=== PATIENT | male | born 1995 | race Caucasian/White ===

== ENCOUNTER 2017-06-07 22:26 | Emergency (ER) | payer MEDICAID ==
--- NOTE | 2017-06-08 00:10 | EDPHYS ---
Physician Documentation [facility] Name: Jovani Isaac Age: 21 yrs Sex: Male : 1995 Arrival Date: 06/07/2017 Time: 22:30 Bed 26 Private MD: ED Physician Vini Akers HPI: 06/07 23:57 This 21 yrs old Male presents to ER via Ambulatory with complaints of Sore cp Throat. 23:57 The patient presents with sore throat. The patient describes throat pain as constant. cp Onset: The symptoms/episode began/occurred this morning. Severity of symptoms: in the emergency department the symptoms are unchanged, despite home interventions. Associated signs and symptoms: Pertinent negatives cough, fever, flu-like symptoms, headache. Historical: - Allergies: 23:09 No Known Allergies; lp1 - Home Meds: 23:09 None [Active]; lp1 - PMHx: 23:09 Asthma; Depression; lp1 - PSHx: 23:09 None; lp1 - Immunization history:: Adult Immunizations up to date. - Social history:: Smoking status: Patient/guardian denies using tobacco. ROS: 23:57 Eyes: Negative for injury, pain, redness, and discharge. cp 23:57 Constitutional: Negative for body aches, chills, fever, poor PO intake. 23:57 ENT: Positive for difficulty swallowing, sore throat, Negative for drainage from ear(s), ear pain, difficulty handling secretions. 23:57 Neck: Negative for pain with movement, pain at rest, stiffness. 23:57 Respiratory: Negative for cough, wheezing. 23:57 Abdomen/GI: Negative for abdominal pain, nausea, vomiting, and diarrhea. 23:57 Skin: Negative for cellulitis, rash. 23:57 All other systems are negative. Exam: 23:57 Head/Face: Normocephalic, atraumatic. cp 23:57 Constitutional: The patient appears in no acute distress, alert, awake, non-toxic, well developed, well nourished. 23:57 Eyes: Periorbital structures: appear normal, Conjunctiva: normal, no exudate, no injection, Lids and lashes: appear normal, bilaterally. 23:57 ENT: External ear(s): are unremarkable, Ear canal(s): are normal, clear, TM's: bulging, is not appreciated, bilaterally, erythema, is not appreciated, bilaterally, Nose: is normal, Mouth: Lips: moist, Oral mucosa: moist, Posterior pharynx: Airway: no evidence of obstruction, patent, Tonsils: bilaterally enlarged, mild erythema, Uvula: edematous, erythema, erythema, that is moderate, exudate, noted on uvula. 23:57 Neck: ROM/movement: is normal, is supple, without pain, no range of motions limitations, no meningismus, no nuchal rigidity. 23:57 Chest/axilla: Inspection: normal, Palpation: is normal, no crepitus, no tenderness. 23:57 Cardiovascular: Rate: normal, Rhythm: regular. 23:57 Respiratory: the patient does not display signs of respiratory distress, Respirations: normal, no use of accessory muscles, no retractions, no splinting, no tachypnea, Breath sounds: are clear throughout, no decreased breath sounds, no stridor, no wheezing. 23:57 Abdomen/GI: Exam negative for discomfort, distension, guarding, Inspection: abdomen appears normal. 23:57 Skin: cellulitis, is not appreciated, no rash present. Vital Signs: 23:09 BP 139 / 85 RA Sitting; Pulse 88; Resp 16; Temp 98.2(TE); Pulse Ox 96% on R/A; Weight lp1 90.72 kg; Height 5 ft. 6 in. (167.64 cm); Pain 7/10; 23:09 Body Mass Index 32.28 (90.72 kg, 167.64 cm) lp1 MDM: 23:14 Patient medically screened. cp 06/08 00:03 Differential diagnosis: apthous stomatitis, epiglottitis, luca-smith virus, group A cp strep tonsillitis, ranjit's angina, mononucleosis, peritonsillar abscess pharyngitis. Data reviewed: vital signs, nurses notes, and as a result, I will discharge patient. Administered Medications: 00:15 Drug: Augmentin Chewable Tablet 800 mg Route: PO; lk1 00:18 Follow up: Response: Medication administered at discharge. lk1 00:16 Drug: Decadron 10 mg Route: IM; Site: Other; lk1 00:18 Follow up: Response: Medication administered at discharge. lk1 00:18 CANCELLED (Duplicate Order): Decadron 10 mg PO once lk1 Disposition: 06/08/17 00:08 Discharged to Home. Impression: Uvulitis, Acute tonsillitis. - Condition is Stable. - Discharge Instructions: Tonsillitis, Uvulitis. - Prescriptions for Augmentin 875- 125 mg Oral Tablet - take 1 tablet by ORAL route every 12 hours for 10 days; 20 tablet. Prednisone 20 mg Oral Tablet - take 2 tablet by ORAL route once daily for 5 days; 10 tablet. - Medication Reconciliation Form, Thank You Letter, Antibiotic Education, Prescription Opioid Use form. - Follow up: Private Physician; When: 1 - 2 days; Reason: Recheck today's complaints. - Problem is new. - Symptoms are unchanged. Addendum: 06/11/2017 07:07 Co-signature as Attending Physician, Vini Akers MD I agree with the assessment and w a plan of care. Signatures: Alice Sigala, RN RN lp1 Dexter Sharpe PA PA cp Kluge, Leah, RN RN lk1 Vini Akers MD MD va Corrections: (The following items were deleted from the chart) 06/08 00:18 00:09 Decadron 10 mg PO once ordered. cp lk1
--- NOTE | 2017-06-08 00:10 | ER ---
Nurse's Notes [facility] Name: Jovani Isaac Age: 21 yrs Sex: Male : 1995 Arrival Date: 06/07/2017 Time: 22:30 Bed 26 Private MD: Diagnosis: Acute tonsillitis;Uvulitis Presentation: 06/07 23:07 Presenting complaint: Patient states: Attempted to go to sleep tonight and couldn't lp1 with pain to throat, pain when swallowing; Sore throat began yesterday. Transition of care: patient was not received from another setting of care. Onset of symptoms was June 06, 2017. Care prior to arrival: None. 23:07 Method Of Arrival: Ambulatory lp1 23:07 Acuity: DEYSI 4 lp1 Historical: - Allergies: 23:09 No Known Allergies; lp1 - Home Meds: 23:09 None [Active]; lp1 - PMHx: 23:09 Asthma; Depression; lp1 - PSHx: 23:09 None; lp1 - Immunization history:: Adult Immunizations up to date. - Social history:: Smoking status: Patient/guardian denies using tobacco. Screenin:11 Abuse screen: Denies threats or abuse. Denies injuries from another. Nutritional lp1 screening: No deficits noted. Tuberculosis screening: No symptoms or risk factors identified. Fall Risk None identified. Assessment: 23:33 General: Appears ill, Behavior is calm, cooperative, appropriate for age. Pain: lk1 Complains of pain in throat Pain currently is 7 out of 10 on a pain scale. Neuro: Level of Consciousness is awake, alert, obeys commands, Oriented to person, place, time, situation. Cardiovascular: Heart tones S1 S2 present Capillary refill is brisk Patient's skin is warm and dry. Respiratory: Airway is patent Respiratory effort is even, unlabored, Breath sounds are clear bilaterally. GI: No signs and/or symptoms were reported involving the gastrointestinal system. : No signs and/or symptoms were reported regarding the genitourinary system. EENT: Throat is reddened has enlarged tonsils. EENT: Reports pain when swallowing. Derm: No signs and/or symptoms reported regarding the dermatologic system. Musculoskeletal: No signs and/or symptoms reported regarding the musculoskeletal system. Vital Signs: 23:09 BP 139 / 85 RA Sitting; Pulse 88; Resp 16; Temp 98.2(TE); Pulse Ox 96% on R/A; Weight lp1 90.72 kg; Height 5 ft. 6 in. (167.64 cm); Pain 7/10; 23:09 Body Mass Index 32.28 (90.72 kg, 167.64 cm) lp1 ED Course: 22:30 Patient arrived in ED. es 23:09 Triage completed. lp1 23:09 Arm band placed on left wrist. lp1 23:14 Dexter Sharpe PA is PHCP. cp 23:14 Vini Akers MD is Attending Physician. 23:30 Patient has correct armband on for positive identification. Bed in low position. Call lk1 light in reach. 06/08 00:06 Taty Borden, EROS is Primary Nurse. lk1 00:20 No provider procedures requiring assistance completed. Patient did not have IV access lk1 during this emergency room visit. Administered Medications: 00:15 Drug: Augmentin Chewable Tablet 800 mg Route: PO; lk1 00:18 Follow up: Response: Medication administered at discharge. lk1 00:16 Drug: Decadron 10 mg Route: IM; Site: Other; lk1 00:18 Follow up: Response: Medication administered at discharge. lk1 00:18 CANCELLED (Duplicate Order): Decadron 10 mg PO once lk1 Outcome: 00:08 Discharge ordered by . cp 00:20 Discharged to home ambulatory. lk1 00:20 Condition: good 00:20 Discharge instructions given to patient, Instructed on discharge instructions, follow up and referral plans. medication usage, safety practices, Demonstrated understanding of instructions, follow-up care, medications, Prescriptions given X 2. 00:23 Patient left the ED. lk1 Signatures: Chanelle Rojo Laura, RN RN lp1 Dexter Sharpe PA PA cp Taty Borden, EROS RN lk1
[2017-06-08] MEDS ORDERED: AMOX/K CLAV 875 MG TAB ONE (00:27)
[2017-06-08] MEDS ORDERED: DEXAMETHASONE 10 MG/ML VIAL ONE (00:30)
== END 2017-06-08 00:23 | disposition home or self-care (01) ==
LOC: ER 22:26
DX: K12.2 Cellulitis and abscess of mouth (principal); J03.90 Acute tonsillitis, unspecified
CPT/HCPCS: 96372; 99283; J1100

== ENCOUNTER 2017-11-05 14:04 | Emergency (ER) | payer MEDICAID ==
[2017-11-05] MEDS ORDERED: IBUPROFEN 200 MG TAB PO ONE (14:35)
[2017-11-05] MEDS ORDERED: IBUPROFEN 400 MG TAB ONE (14:35)
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
== END 2017-11-05 15:58 | disposition home or self-care (01) ==
LOC: ER 14:04
DX: S50.11XA Contusion of right forearm, initial encounter (principal); S80.01XA Contusion of right knee, initial encounter; V18.0XXA Pedal cycle driver injured in noncollision transport accident in nontraffic accident, initial encounter
CPT/HCPCS: 99284

== ENCOUNTER 2018-07-30 16:38 | Emergency (ER) | payer MEDICAID ==
[2018-07-30] MEDS ORDERED: ONDANSETRON 4 MG/2 ML VIAL ONE (17:30)
[2018-07-30] MEDS ORDERED: NA CHLORIDE 0.9% 1,000 ML ONE (17:30)
--- NOTE | 2018-07-30 17:38 | EDPHYS ---
Physician Documentation [facility] Name: Jovani Isaac Age: 22 yrs Sex: Male : 1995 Arrival Date: 07/30/2018 Time: 16:44 Bed 25 Private MD: ED Physician Moe Catherine HPI: 07/30 17:02 This 22 yrs old Male presents to ER via Unassigned with complaints of Cough, kb Sore Throat, Nausea. 17:02 The patient presents with sore throat. The patient describes throat pain as constant. kb Onset: The symptoms/episode began/occurred yesterday. Severity of symptoms: At their worst the symptoms were moderate, in the emergency department the symptoms are unchanged. Modifying factors: The symptoms are alleviated by nothing, the symptoms are aggravated by swallowing, Patient's oral intake status: good Denies contact with similarly ill indivduals. Associated signs and symptoms: Pertinent positives: cough, nausea, Sore throat Pertinent negatives chest pain, chills, diarrhea, dysphagia, earache, fever, flu-like symptoms, headache, rhinorrhea, shortness of breath, vomiting. The patient has not experienced similar symptoms in the past. The patient has not recently seen a physician. Historical: - Allergies: 17:43 No Known Allergies; iw - Home Meds: 17:43 None [Active]; iw - PMHx: 17:43 Asthma; Depression; iw - PSHx: 17:43 wisdom teeth; iw - Immunization history:: Adult Immunizations up to date. - Social history:: Smoking status: Patient uses tobacco products. - Ebola Screening: : Patient negative for fever greater than or equal to 101.5 degrees Fahrenheit, and additional compatible Ebola Virus Disease symptoms Patient denies exposure to infectious person Patient denies travel to an Ebola-affected area in the 21 days before illness onset No symptoms or risks identified at this time. ROS: 17:01 Constitutional: Negative for fever, chills, and weight loss, Neck: Negative for injury, kb pain, and swelling, Cardiovascular: Negative for chest pain, palpitations, and edema, Back: Negative for injury and pain, MS/Extremity: Negative for injury and deformity, Skin: Negative for injury, rash, and discoloration, Neuro: Negative for headache, weakness, numbness, tingling, and seizure. 17:01 ENT: Positive for sore throat. 17:01 Respiratory: Positive for cough, Negative for dyspnea on exertion, hemoptysis, orthopnea, pleurisy, shortness of breath, sputum production, wheezing. 17:01 Abdomen/GI: Positive for nausea, Negative for abdominal pain, vomiting, diarrhea, constipation, abdominal cramps, abdominal distension. Exam: 17:01 Constitutional: This is a well developed, well nourished patient who is awake, alert, kb and in no acute distress. Head/Face: Normocephalic, atraumatic. ENT: Nares patent. No nasal discharge, no septal abnormalities noted. Tympanic membranes are normal and external auditory canals are clear. Oropharynx with no redness, swelling, or masses, exudates, or evidence of obstruction, uvula midline. Mucous membranes moist. Neck: Trachea midline, no thyromegaly or masses palpated, and no cervical lymphadenopathy. Supple, full range of motion without nuchal rigidity, or vertebral point tenderness. No Meningismus. Chest/axilla: Normal chest wall appearance and motion. Nontender with no deformity. No lesions are appreciated. Cardiovascular: Regular rate and rhythm with a normal S1 and S2. No gallops, murmurs, or rubs. Normal PMI, no JVD. No pulse deficits. Respiratory: Lungs have equal breath sounds bilaterally, clear to auscultation and percussion. No rales, rhonchi or wheezes noted. No increased work of breathing, no retractions or nasal flaring. Abdomen/GI: Soft, non-tender, with normal bowel sounds. No distension or tympany. No guarding or rebound. No evidence of tenderness throughout. Skin: Warm, dry with normal turgor. Normal color with no rashes, no lesions, and no evidence of cellulitis. MS/ Extremity: Pulses equal, no cyanosis. Neurovascular intact. Full, normal range of motion. Neuro: Awake and alert, GCS 15, oriented to person, place, time, and situation. Cranial nerves II-XII grossly intact. Motor strength 5/5 in all extremities. Sensory grossly intact. Cerebellar exam normal. Normal gait. Vital Signs: 17:10 BP 139 / 91; Pulse 79; Resp 16; Temp 98.5(O); Pulse Ox 98% on R/A; Weight 81.65 kg; iw Height 5 ft. 6 in. (167.64 cm); Pain 7/10; 17:10 Body Mass Index 29.05 (81.65 kg, 167.64 cm) iw MDM: 16:50 Patient medically screened. kb 17:01 Data reviewed: vital signs, nurses notes. Data interpreted: Pulse oximetry: on room air kb is 100 %. Interpretation: normal. 17:37 Counseling: I had a detailed discussion with the patient and/or guardian regarding: the kb historical points, exam findings, and any diagnostic results supporting the discharge/admit diagnosis, lab results, the need for outpatient follow up, a family practitioner, to return to the emergency department if symptoms worsen or persist or if there are any questions or concerns that arise at home. 07/30 16:52 Order name: Flu; Complete Time: 17:37 kb 07/30 16:52 Order name: Strep; Complete Time: 17:37 kb 07/30 17:11 Order name: Urine Dipstick--Ancillary (enter results) bd 07/30 17:35 Order name: Throat Culture EDMS Administered Medications: 17:51 Drug: Zofran 4 mg Route: PO; ls4 Disposition: 18:47 Co-signature as Attending Physician, Moe Catherine MD. rn Disposition: 07/30/18 17:38 Discharged to Home. Impression: Acute pharyngitis. - Condition is Stable. - Discharge Instructions: Pharyngitis, [id number], Viral Respiratory Infection, [id number], Sore Throat, [id number]-[id number]. - Medication Reconciliation Form, Thank You Letter, Antibiotic Education, Prescription Opioid Use form. - Follow up: Emergency Department; When: As needed; Reason: Worsening of condition. Follow up: Private Physician; When: 2 - 3 days; Reason: Recheck today's complaints, Continuance of care, Re-evaluation by your physician. Signatures: Dispatcher [employer] EDMS Cheli Mayorga, NICK ORTIZP-Nani Rivera RN RN iw Nieto, Roman, MD MD rn Stewart, Lisa, RN RN ls4 Corrections: (The following items were deleted from the chart) 17:59 17:38 07/30/2018 17:38 Discharged to Home. Impression: Acute pharyngitis. Condition is ls4 Stable. Forms are Medication Reconciliation Form, Thank You Letter, Antibiotic Education, Prescription Opioid Use. Follow up: Emergency Department; When: As needed; Reason: Worsening of condition. Follow up: Private Physician; When: 2 - 3 days; Reason: Recheck today's complaints, Continuance of care, Re-evaluation by your physician. kb
--- NOTE | 2018-07-30 18:01 | ER ---
Nurse's Notes [facility] Name: Jovani Isaac Age: 22 yrs Sex: Male : 1995 Arrival Date: 07/30/2018 Time: 16:44 Bed 25 Private MD: Diagnosis: Acute pharyngitis Presentation: 07/30 17:00 Presenting complaint: Patient states: cough, sore throat since yesterday. Transition of iw care: patient was not received from another setting of care. Onset of symptoms was July 29, 2018. Risk Assessment: Do you want to hurt yourself or someone else? Patient reports no desire to harm self or others. Initial Sepsis Screen: Does the patient meet any 2 criteria? No. Patient's initial sepsis screen is negative. Does the patient have a suspected source of infection? No. Patient's initial sepsis screen is negative. Care prior to arrival: None. 17:00 Method Of Arrival: Ambulatory iw 17:00 Acuity: DEYSI 4 iw Historical: - Allergies: 17:43 No Known Allergies; iw - Home Meds: 17:43 None [Active]; iw - PMHx: 17:43 Asthma; Depression; iw - PSHx: 17:43 wisdom teeth; iw - Immunization history:: Adult Immunizations up to date. - Social history:: Smoking status: Patient uses tobacco products. - Ebola Screening: : Patient negative for fever greater than or equal to 101.5 degrees Fahrenheit, and additional compatible Ebola Virus Disease symptoms Patient denies exposure to infectious person Patient denies travel to an Ebola-affected area in the 21 days before illness onset No symptoms or risks identified at this time. Vital Signs: 17:10 BP 139 / 91; Pulse 79; Resp 16; Temp 98.5(O); Pulse Ox 98% on R/A; Weight 81.65 kg; iw Height 5 ft. 6 in. (167.64 cm); Pain 7/10; 17:10 Body Mass Index 29.05 (81.65 kg, 167.64 cm) iw ED Course: 16:44 Patient arrived in ED. mr 16:50 Cheli Mayorga F[facility]-C [facility]. kb 16:50 Moe Catherine MD is Attending Physician. kb 16:51 Marisol Alberts, EROS is Primary Nurse. ls4 17:43 Triage completed. iw 17:45 Arm band placed on. iw Administered Medications: 17:51 Drug: Zofran 4 mg Route: PO; ls4 Outcome: 17:38 Discharge ordered by . kb 17:59 Patient left the ED. ls4 Signatures: Cheli Mayorga, NICK MCLEAN-Shanae Villalba Irene, EROS RN iw Marisol Alberts RN RN ls4
[2018-07-30] MEDS ORDERED: ONDANSETRON 4 MG (ODT) TAB ONE (18:03)
[2018-07-30 18:35] LABS: Urine Blood NEGATIVE (NEG); Urine Glucose NEGATIVE (NEG); Urine Protein NEGATIVE (NEG); Urine pH 5.5 (5.0-7.0)
== END 2018-07-30 17:59 | disposition home or self-care (01) ==
LOC: ER 16:38
DX: R05 Cough (principal); J02.9 Acute pharyngitis, unspecified; J45.909 Unspecified asthma, uncomplicated; F32.9 Major depressive disorder, single episode, unspecified; Z53.21 Procedure and treatment not carried out due to patient leaving prior to being seen by health care provider
CPT/HCPCS: 81003; 87070; 87081; 87804; 99282; J2405; J7030

== ENCOUNTER 2022-05-25 01:06 | Emergency (ER) | payer OTHER, SELFPAY ==
[2022-05-25 02:24] LABS: Absolute Lymphocytes (CBC) 3.3 K/uL (0.7-4.9); Hematocrit 40.9 % (39.6-49.0); Lymphocytes % 28.3 % (15.3-44.8); MCV 81.9 fL (80-100); MPV 8.6 fL (7.6-11.3); RBC Red Blood Cell Count 4.99 M/uL (4.33-5.43)
[2022-05-25 02:32] LABS: Protime INR 1.08
[2022-05-25 02:41] LABS: Barbiturates NEGATIVE (NEGATIVE); Benzodiazepines NEGATIVE (NEGATIVE); Cocaine NEGATIVE (NEGATIVE); METHAMPHETAM NEGATIVE (NEGATIVE); Methadone NEGATIVE (NEGATIVE); Opiates NEGATIVE (NEGATIVE); Phencyclidine NEGATIVE (NEGATIVE); THC Cannibis NEGATIVE (NEGATIVE)
[2022-05-25 02:43] LABS: ALT/SGPT 21 U/L (16-61); AST/SGOT 14 U/L (15-37); Albumin 3.6 g/dL (3.4-5.0); Alkaline Phosphatase 71 U/L (45-117); BUN Blood Urea Nitrogen 15 mg/dL (7-18); Bicarbonate 27 mmol/L (21-32); Bilirubin Direct 0.1 mg/dL (0-0.2); Bilirubin Total 0.3 mg/dL (0.2-1.0); Glomerular Filtration Rate 118 ml/min (=/>90); Glucose Level 94 mg/dL (74-106); Potassium 3.9 mmol/L (3.5-5.1); Protein, Total 6.7 g/dL (6.4-8.2); Sodium Level 138 mmol/L (136-145)
[2022-05-25] MEDS ORDERED: LORAZEPAM 1 MG TABLET ONE ×2 (03:08→18:57)
[2022-05-25 09:54] LABS: SARS-CoV-2 Antigen Rapid Res Negative (Negative)
--- NOTE | 2022-05-28 13:15 | EKG ---
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
--- NOTE | 2022-06-08 16:09 | EDPHYS ---
Physician Documentation [facility] Name: Jovani Isaac Age: 26 yrs Sex: Male : 1995 Arrival Date: 05/25/2022 Time: 01:11 Bed 17 Private MD: ED Physician Dexter Goff HPI: 05/25 02:05 This 26 yrs old Male presents to ER via Law Enforcement with complaints of Suicidal cp Ideation. 02:05 The patient presents to the emergency department with depression, suicide ideation, and cp the patient has a plan, jump off a bridge. Past psychiatric history: Prior diagnosis: depression, Psychiatric medications include: Zoloft. Associated signs and symptoms: The patient has no apparent associated signs or symptoms. Historical: - Allergies: 01:47 No Known Allergies; vc1 - Home Meds: 01:47 estradiol 0.5 mg Oral tablet twice a day [Active]; albuterol sulfate 90 mcg/actuation vc1 Inhl HFA Aerosol Inhaler every 2 to 6 hours [Active]; Zoloft Oral [Active]; - PMHx: 01:47 Asthma; Depression; vc1 - PSHx: 01:47 Cholecystectomy; vc1 - Immunization history:: Client reports receiving the 2nd dose of the Covid vaccine. - Social history:: Smoking status: Patient denies any tobacco usage or history of. ROS: 02:10 Eyes: Negative for injury, pain, redness, and discharge. cp 02:10 Constitutional: Negative for body aches, chills, fever, poor PO intake. 02:10 Cardiovascular: Negative for chest pain. 02:10 Respiratory: Negative for cough, shortness of breath, wheezing. 02:10 Abdomen/GI: Negative for abdominal pain, nausea, vomiting, and diarrhea. 02:10 Neuro: Negative for altered mental status, dizziness, headache, weakness. 02:10 Psych: Positive for depression, suicidal ideation. 02:10 All other systems are negative. Exam: 02:11 ECG was reviewed by the Attending Physician. cp 02:12 Head/Face: Normocephalic, atraumatic. cp 02:12 Constitutional: The patient appears in no acute distress, alert, awake, non-diaphoretic, non-toxic, well developed, well nourished. 02:12 Eyes: Periorbital structures: appear normal, Conjunctiva: normal, no exudate, no injection, Lids and lashes: appear normal, bilaterally. 02:12 ENT: External ear(s): are unremarkable, Nose: is normal, Mouth: Lips: moist, Oral mucosa: moist, Posterior pharynx: is normal, airway is patent, no erythema, no exudate. 02:12 Chest/axilla: Inspection: normal. 02:12 Cardiovascular: Rate: normal, Rhythm: regular. 02:12 Respiratory: the patient does not display signs of respiratory distress, Respirations: normal, no use of accessory muscles, no retractions, labored breathing, is not present, Breath sounds: are clear throughout, no decreased breath sounds, no stridor, no wheezing. 02:12 Abdomen/GI: Inspection: abdomen appears normal, Palpation: abdomen is soft and non-tender, in all quadrants. 02:12 Neuro: Orientation: to person, place \T\ time. Mentation: is normal, Cerebellar function: is grossly normal, Motor: moves all fours, strength is normal, Sensation: is normal. Vital Signs: 01:42 Weight 90.72 kg; Height 5 ft. 7 in. ; Pain 0/10; vc1 01:52 BP 118 / 80; Pulse 72; Resp 20; Temp 97.7; Pulse Ox 96% ; vc1 15:03 BP 124 / 79; Pulse 94; Resp 18; Pulse Ox 98% on R/A; tm3 11 00:00 BP 131 / 75; Pulse 81; Resp 20; Pulse Ox 100% ; Pain 0/10; jj7 06:25 BP 127 / 75; Pulse 83; Resp 18; Pulse Ox 97% on R/A; oe 05/25 01:42 Body Mass Index 31.32 (90.72 kg, 170.18 cm) vc1 05/25 01:42 Pain Scale: Adult vc1 05/26 00:00 Pain Scale: Adult jj7 MDM: 05/25 01:57 Patient medically screened. cp 05/26 07:05 Differential diagnosis: drug withdrawal. acute psychotic break. Data reviewed: vital chase signs, nurses notes, lab test result(s), EKG. Consideration of Admission/Observation Patient was admitted/placed on observation. I considered the following discharge prescriptions or medication management in the emergency department Medications were administered in the Emergency Department. See MAR. Care significantly affected by the following chronic conditions: ASTHMA, DEPRESSION. 07:08 ED course: NOT SUICIDAL, NO PLAN, WILL FOLLOW UP AND RETURN IF THOUGHTS CHANGE. chase 05/25 02:05 Order name: Acetaminophen; Complete Time: 02:49 cp 05/25 02:05 Order name: Basic Metabolic Panel; Complete Time: 02:49 cp 05/25 02:49 Interpretation: Reviewed. cp 05/25 02:05 Order name: CBC with Diff; Complete Time: 02:49 cp 05/25 02:49 Interpretation: Normal except: WBC 11.70. cp 05/25 02:05 Order name: ETOH Level; Complete Time: 02:49 cp 05/25 02:50 Interpretation: Reviewed. cp 05/25 02:05 Order name: Hepatic Function; Complete Time: 02:49 cp 05/25 02:05 Order name: PT-INR; Complete Time: 02:49 cp 05/25 02:05 Order name: Ptt, Activated; Complete Time: 02:49 cp 05/25 02:05 Order name: Salicylate; Complete Time: 02:49 cp 05/25 02:05 Order name: Urine Drug Screen; Complete Time: 02:49 cp 05/25 02:50 Interpretation: Reviewed. cp 05/25 09:26 Order name: SARS RAPID; Complete Time: 07:04 eb 05/25 02:05 Order name: EKG; Complete Time: 02:06 cp 05/25 06:58 Order name: Diet Finger Food; Complete Time: 06:58 hb 05/25 11:25 Order name: Diet Finger Food; Complete Time: 11:25 mm9 05/25 15:55 Order name: Diet Finger Food; Complete Time: 15:56 mm9 05/25 02:05 Order name: EKG - Nurse/Tech; Complete Time: 02:44 cp 05/25 02:05 Order name: IV Saline Lock; Complete Time: 02:44 cp 05/25 02:05 Order name: Labs collected and sent; Complete Time: 02:44 cp 05/25 02:05 Order name: Suicide Precautions; Complete Time: 02:44 cp 05/25 02:05 Order name: Suicide Screening ([place]); Complete Time: 02:44 cp 05/25 02:05 Order name: Urine Dipstick-Ancillary (obtain specimen); Complete Time: 02:44 cp EC/10 02:11 Rate is 77 beats/min. Rhythm is regular. MA interval is normal. QRS interval is normal. cp QT interval is normal. T waves are Inverted in lead aVR. Interpreted by me. Reviewed by me. Administered Medications: 03:06 Drug: LORazepam PO 1 mg Route: PO; lg3 04:10 Follow up: Response: No adverse reaction; Marked relief of symptoms; Anxiety decreased lg3 18:56 Drug: LORazepam PO 1 mg Route: PO; kc6 19:21 Follow up: Response: No adverse reaction; Anxiety decreased kc6 Disposition: 05/26 07:05 Co-signature as Attending Physician, Dexter Goff MD I agree with the assessment and chase plan of care. Disposition Summary: 05/26/22 07:07 Discharge Ordered Location: Home chase Problem: new(05/26/22 07:07) chase Symptoms: have improved(05/26/22 07:07) chase Condition: Stable(05/26/22 07:07) chase Diagnosis - Major depressive disorder, recurrent, mild chase - Suicidal ideations - RESOLVED(05/26/22 07:07) chase Followup: chase - With: Private Physician - When: 2 - 3 days - Reason: Recheck today's complaints, Continuance of care, Re-evaluation by your physician Followup: chase - With: Juan Diego Saunders MD - When: 2 - 3 days - Reason: Recheck today's complaints, Re-evaluation by your physician Discharge Instructions: - Discharge Summary Sheet chase - Suicidal Feelings: How to Help Yourself chase - Helping Someone Who is Suicidal chase - Stress, Adult chase - Major Depressive Disorder, Adult chase - Supporting Someone With Depression chase - Managing Depression, Adult chase Forms: - Medication Reconciliation Form chase - Thank You Letter chase - Antibiotic Education chase - Prescription Opioid Use chase Signatures: Dispatcher [employer] Dexter Finnegan MD MD cha Page, Corey, PA PA cp Gibson, Lacie, RN RN lg3 Charu Perdue RN RN vc1 Monika Hernandez RN RN kc6 Corrections: (The following items were deleted from the chart) 07:05/25 02:31 Doctor cp chase 05/26 07:06 03 02:31 Psych Facility cp chase 05/26 07:06 03 02:31 Higher level of care cp chase 05/26 07:06 03 02:31 Stable cp chase 05/26 07:06 05/25 02:31 new cp chase 05/26 07:06 05/25 02:31 are unchanged cp chase 05/26 06:05/25 02:31 Suicidal ideations cp chase
== END 2022-05-26 07:23 | disposition home or self-care (01) ==
LOC: ER 01:06
DX: F33.0 Major depressive disorder, recurrent, mild (principal); Z20.822 Contact with and (suspected) exposure to COVID-19
CPT/HCPCS: 93005; 85025; 80048; 36415; 85610; 80076; 85730; 80307; 99284; 87811; G0480 ×3

== ENCOUNTER 2022-07-12 02:47 | Observation (INO) | payer OTHER ==
--- OUTSIDE RECORDS SUMMARY | 2022-07-12 02:51 | XMS REPORT | Continuity of Care Document ---
:1995 Author Organization [facility] t Address [address] [place] [address] [address] [place] [address] Care Team Providers Name Role Phone Madan Benavidez Attending Clinician Unavailable Tripp, Francisco Unavailable Unavailable Payers Payer Name Policy Type Policy Number Effective Date Expiration Date S ource Self Pay P NONE Problems Condition Condition Condition Status Onset Resolution Last Treating Co mments Source Name Details Category Date Date Treatment Clinician Date Gender Condition Active 2022-06-08 Tripp, LM C identity 06-08 12:50:51 Francisco Adult disorder 00:00: Medicin 00 e Allergies, Adverse Reactions, Alerts Allergy Allergy Status Severity Reaction(s) Onset Inactive Treating Comm ents Source Name Type Date Date Clinician No Known DA Active U [facility] Drug 3-15 Allergie 00:00: s 00 Social History Social Habit Start Date Stop Date Quantity Comments Source Gender identity Meir smith Sexual orientation [facility] History of Social 2020-10-19 2020-10-19 [facility] function 00:00:00 00:00:00 Alcohol intake 2020-10-18 2020-10-18 Current Meir [facility] lt 00:00:00 00:00:00 non-drinker of alcohol (finding) Tobacco use and 2014-06-07 2014-06-07 Smokeless tobacco [facility] exposure 00:00:00 00:00:00 non-user Sex Ass[birth year] At [birth year] Meir smith 00:00:00 00:00:00 Smoking Status Start Date Stop Date Source Never smoked tobacco [facility] Medications This patient has no known medications. Procedures Procedure Date / Time Performing Clinician Source [facility] 2022-06-08 12:51:19 Provider, Shante weinstein [facility] Health Counseling Gender Care Navigation 2022-06-08 12:49:48 Tracie Singh [facility] Venipuncture 2022-06-08 12:49:47 [facility] Planned Activity Planned Date Details Comments Source Future Scheduled Test 2022-12-16 00:00:[address] [facility] Seasonal (>/= 19 yrs) [code = IMM Influenza Seasonal (>/= 19 yrs)] Future Scheduled Test 1996-02-23 00:00:00 COVID-19 Vaccine (#1) [facility] [code = COVID-19 Vaccine (#1)] Encounters Start End Encounter Admission Attending Care Care Encounter Source Date/Time Date/Time Type Type Clinicians Facility Department ID 2022-06-19 Outpatient [facility] [id number] [facility] 08:11:03 [id number] [facility] 2022-06-08 Outpatient [facility] [id number] [facility] 12:31:03 [id number] [facility] 2022-05-30 2022-05-30 Emergency Emergency Madan Benavidez [facility] [id number] [facility] 19:23:00 19:23:00 15 2022-05-30 2022-05-30 Emergency [facility] [id number] [facility] 19:23:00 19:23:00 15 Results Test Description Test Time Test Comments Results Result Comments Source Coronavirus NAAT, COVD19 2022-05-30 21:25:00 Test Item Value Reference Range Interpretation Comme nts Coronavirus NAAT, COVD19 (test code = Reference Range: Negative [id number]) Coronavirus NAAT, COVD19 (test code = ical-devices/uuduqdhil-rhy-zy thorizat [id number]) ions. SARS-CoV-2 NAAT Result: (test code = Negative by RT-PCR SARS-CoV-2 NAAT Result:) Complete Blood Count Auto [id number] 19:55:00 Test Item Value Reference Range Interpretation Comments White Blood Count (test code = 11.9 x10 3/uL 4.4-10.5 H WBCT) Red Blood Count (test code = 5.41 x10 6/uL 4.10-5.70 N RBC) Hemoglobin (test code = HGBT) 15.0 g/dL 13.4-17.4 N Hematocrit (test code = HCTT) 46.1 % 38.7-52.0 N Mean Corpuscular Volume (test 85.20 fL 80.00-100.00 N code = MCV) Mean Corpuscular Hemoglobin 27.7 pg 27.0-32.5 N (test code = MCH) Mean Corpuscular HGB Conc (test 32.50 g/dL 32.00-37.50 N code = MCHC) RDW Coefficient of Variation 13.1 % 11.5-14.5 N (test code = RDWCV) Platelet Count (test code = 231 x10 3/uL 140.0-440.0 N PLTT) Mean Platelet Volume (test code 11.0 fL = MPV) Immature Granulocytes % (Auto) 0.3 % 0.0-5.0 N (test code = IMMGRAN%) Neutrophils % (Auto) (test code 77.4 % 36.0-70.0 H = NE%) Lymphocytes % (Auto) (test code 15.3 % 12.0-44.0 N = LY%) Monocytes % (Auto) (test code = 5.9 % 0.0-11.0 N MO%) Eosinophils % (Auto) (test code 0.9 % 0.0-7.0 N = EO%) Basophils % (Auto) (test code = 0.2 % 0.0-2.0 N BA%) Immature Granulocytes # (Auto) 0.04 x10 3/uL (test code = IMMGRAN#) Neutrophils # (Auto) (test code 9.2 x10 3/uL 1.6-7.4 H = NE#) Lymphocytes # (Auto) (test code 1.82 x10 3/uL 0.50-4.60 N = LY#) Monocytes # (Auto) (test code = 0.70 x10 3/uL 0.00-1.20 N MO#) Eosinophils # (Auto) (test code 0.11 x10 3/uL 0.00-0.74 N = EO#) Basophils # (Auto) (test code = 0.02 x10 3/uL 0.00-0.21 N BA#) nRBC Abs (test code = NRBCA) 0 nRBC Pct (test code = NRBCP) 0 % UA, Urinalysis w [id number] 19:55:00 Test Item Value Reference Range Interpretation Comments Color,Urine (test code = UCOL) Yellow Yellow Clarity,Urine (test code = Clear Clear UCLAR) Ph, Urine (test code = UPH) 6.0 5.0-9.0 N Specific [place],Urine (test 1.010 1.005-1.030 N code = USG) Blood,Urine (test code = UBLD) Negative mg/dL Negative Protein,Urine (test code = Negative mg/dL Negative UPRO) Glucose,Urine (UA) (test code Negative mg/dL Negative = UGLU) Ketones,Urine (test code = Negative mg/dL Negative UKET) Nitrate,Urine (test code = Negative Negative UNIT) Bilirubin,Urine (test code = Negative mg/dL Negative UBIL) Urobilinogen,Urine (test code 0.2 E.U./dL Normal = UURO) Leukocyte Esterase,Urine (test Negative mg/dL Negative code = ULEU) RBC,Urine (test code = URBCUF) None Seen /HPF 0-2 WBC,Urine (test code = UWBCUF) None Seen /HPF 0-5 Epithelial Cell,Urine (test 0-5 /HPF 0-5 code = UECUF) Casts,Urine (test code = None Seen /LPF None Seen UCASTUF) Bacteria,Urine (test code = None Seen /hpf None Seen UBACTUF) Drug Screen,[id number] 19:55:00 Test Item Value Reference Range Interpretation Comments PCP Phencyclidine Screen,Urine (test Negative Negative code = PCPU) Amphetamine Screen,Urine (test code Negative Negative = AMPU) Methadone Screen,Urine (test code = Negative Negative METHU) Opiate Screen,Urine (test code = Negative Negative UOPIS) Barbituates Screen,Urine (test code Negative Negative = BARBU) Benzodiazepines Screen,Urine (test Negative Negative code = UBENZS) Cocaine Screen,Urine (test code = Negative Negative UCOCS) Cannabinoid Screen,Urine (test code Negative Negative = UTHCS) Propoxyphene Screen, Urine (test Negative Negative code = UPROP) Comprehensive Metabolic [id number] 19:55:00 Test Item Value Reference Range Interpretation Comments SODIUM (test code = NA) 141.0 mmol/L 136.0-145.0 N Potassium,K (test code = 3.9 mmol/L 3.0-5.1 N K) Chloride (test code = 105 mmol/L 98-107 N CL) Carbon Dioxide (test 27 mmol/L 20-31 N code = CO2) Anion Gap (test code = 9 mmol/L 5-15 N GAP) Blood Urea Nitrogen 5 mg/dL 9-23 L (test code = BUN) Creatinine (test code = 0.80 mg/dL 0.55-1.02 N CREATT) Creatinine Clr Calc 148.99 Pharmacy (test code = mL/min CRCLPHA) Estimated Glomerular 124 See_Comment Reporte d eGFR is Filt Rate (test code = based on the EGFR.XX) CKD-EPI 2020 equation thatdo es not use a race coefficient. Additional information can be found at:[id number] cb_ egfr_summary_fl dylan 5.pdf (kidney.o rg) [Automated message] The system which generated this result transmit mani reference range : >=90 ml/min/1.73m2. The reference range was not used to interpret this result as normal/abnormal . BUN/Creatinine Ratio 6 ratio 10-20 L (test code = BCRATIO) Glucose (test code = 103 mg/dL 74-106 N GLU) Osmolality,Calculated 288.7 (test code = OSMOC) Calcium (test code = CA) 9.3 mg/dL 8.3-10.6 N Bilirubin,Total (test 0.3 mg/dL 0.2-1.1 N code = BILIT) Aspartate Amino 24 U/L 0-34 N Transferase (test code = AST) Alanine Aminotransferase 24 U/L 10-49 N (test code = ALT) Total Protein (test code 6.7 g/dL 5.7-8.2 N = TP) Albumin Level (test code 4.6 g/dL 3.2-4.8 N = ALB) Globulin (test code = 2.1 mg/dL 2.3-3.5 L GLOB) Albumin/Globulin Ratio 2.2 ratio 0.8-2.0 H (test code = AGRATIO) Alkaline Phosphatase 77 U/L 46-116 N (test code = ALP) Ethanol [id number] 19:55:00 Test Item Value Reference Range Interpretation Comments Ethanol (test code 4 mg/dL The pharm acological = ETOH) response to blo od alcohol levels mayvary from individual to i ndividual. The fatal yoon ntrationhas been reported t o be >400mg/dL.
[2022-07-12] MEDS ORDERED: NA CHLORIDE 0.9% 0 ML ONE (03:14)
[2022-07-12 04:18] LABS: Hematocrit 41.8 % (39.6-49.0); MCV 78.8 fL (80-100); MPV 9.1 fL (7.6-11.3)
[2022-07-12] MEDS ORDERED: FAMOTIDINE 20 MG/2 ML VIAL IV ONE (04:19)
[2022-07-12 04:37] LABS: Albumin 3.7 g/dL (3.4-5.0); Bilirubin Total 0.4 mg/dL (0.2-1.0); Protein, Total 7.4 g/dL (6.4-8.2)
--- NOTE | 2022-07-12 06:04 | ER ---
Nurse's Notes [facility] Name: Jovani Isaac Age: 26 yrs Sex: Male : 1995 Arrival Date: 07/12/2022 Time: 02:47 Bed 13 Private MD: Diagnosis: Syncope Near;Left sided colitis;Hypokalemia;Diarrhea, unspecified;Hypotension, unspecified Presentation: 07/12 03:00 Chief complaint: Patient states: had 2 syncopal episodes ehile having a bowel movement kl pt reports taking night meds and having multiple episodes of diarrhea. Coronavirus screen: Vaccine status:. 03:00 Method Of Arrival: EMS: [facility] 03:16 Ebola Screen: Patient negative for fever greater than or equal to 101.5 degrees kl Fahrenheit, and additional compatible Ebola Virus Disease symptoms. Initial Sepsis Screen: Does the patient meet any 2 criteria? Systolic BP < 90 mmHg. Altered Mental Status. Does the patient have a suspected source of infection? No. Patient's initial sepsis screen is negative. Risk Assessment: Do you want to hurt yourself or someone else? Patient reports no desire to harm self or others. Onset of symptoms was July 11, 2022 at 09:00. 03:16 Acuity: DEYSI 2 kl Triage Assessment: 03:16 General: Appears ill, Behavior is listless, quiet. Pain: Denies pain. Neuro: Reports a kl syncopal episode. Cardiovascular: Rhythm is sinus rhythm. Respiratory: No deficits noted. GI: Reports lower abdominal pain, upper abdominal pain, diarrhea. : No deficits noted. No signs and/or symptoms were reported regarding the genitourinary system. Derm: Skin is intact, Skin is clammy, Skin is pale, Skin temperature is warm. Historical: - Allergies: 03:19 No Known Allergies; kl - Home Meds: 03:19 Prazosin Oral [Active]; estriol (bulk) [Active]; sertraline oral [Active]; kl - PMHx: 03:19 Bipolar disorder; PTSD; kl - PSHx: 03:19 Cholecystectomy; kl - Immunization history:: Adult Immunizations up to date. - Family history:: not pertinent. - Social history:: Smoking status: unknown. Screenin:18 [facility] ED Fall Risk Assessment (Adult) History of falling in the last 3 months, kl including since admission Yes- fall prone (multiple falls) (3 pts) Confusion or Disorientation Yes (5 pts) Intoxicated or Sedated No (0 pts) Impaired Gait Yes (1 pt) Mobility Assist Device Used No (0 pt) Altered Elimination No (0 pt) Score/Fall Risk Level 3 or more points = High Risk Oriented to surroundings, Maintained a safe environment, Educated pt \T\ family on fall prevention, incl call for assistance when getting out of bed, Hourly rounding (assess needs \T\ fall precautionary measures) done, Used ambulatory aids as needed (educated on \T\ assisted with), Offered frequent toileting (1:1 observation). Abuse screen: Denies threats or abuse. Nutritional screening: No deficits noted. Tuberculosis screening: No symptoms or risk factors identified. Assessment: 03:17 Reassessment: see triage assessment. kl 04:15 Reassessment: Patient and/or family updated on plan of care and expected duration. Pain kl level reassessed. Patient is alert, oriented x 3, equal unlabored respirations, skin warm/dry/pink. Patient states feeling better. Patient states symptoms have improved. Neuro: No deficits noted. Cardiovascular: Rhythm is sinus rhythm. Vital Signs: 03:00 BP 60 / 37; kl 03:18 BP 83 / 58; Pulse 78; Resp 20; Temp 98.3(TE); Pulse Ox 99% on R/A; kl 04:15 BP 114 / 76; Pulse 78; Resp 18; Pulse Ox 99% on R/A; kl ED Course: 02:50 Patient arrived in ED. ja2 02:59 Dexter Goff MD is Attending Physician. chase 03:16 Triage completed. kl 03:17 No provider procedures requiring assistance completed. Inserted saline lock: 20 gauge kl in right antecubital area, using aseptic technique. Blood collected. 03:18 Patient has correct armband on for positive identification. Bed in low position. Call kl light in reach. Side rails up X2. Client placed on continuous cardiac and pulse oximetry monitoring. NIBP monitoring applied. 03:32 Missed attempt(s): 22 gauge in left antecubital area. ha1 04:00 CT Head Brain wo Cont In Process Unspecified. EDMS 04:16 CT Abd/Pelvis - IV Contrast Only In Process Unspecified. EDMS 04:16 Magnesium Sent. kl 04:16 BNP Sent. kl 04:35 Chest Single View XRAY In Process Unspecified. EDMS 06:00 Luis Catherine MD is Hospitalizing Provider. [facility] 07:06 Ita Major, RN is Primary Nurse. ha1 09:45 Blood Culture Sent. ko1 09:45 Lactate w/ 2H reflex if indic. Sent. ko1 09:45 Blood Culture Sent. ko1 09:45 Urinalysis w/ reflexes Sent. ko1 09:45 Type And Screen Sent. ko1 Administered Medications: 03:22 Drug: NS 0.9% IV 1000 ml Route: IV; Rate: 1 bolus; Site: right antecubital; kl 04:16 Follow up: IV Status: Completed infusion; IV Intake: 1000ml kl 04:14 Drug: Famotidine IVP 20 mg Route: IVP; Site: right antecubital; kl 04:16 Follow up: Response: No adverse reaction kl 04:16 Drug: NS 0.9% IV 1000 ml Route: IV; Rate: 1 bolus; Site: right antecubital; kl 07:40 Drug: metroNIDAZOLE IVPB 500 mg Volume: 100 ml; Route: IVPB; Rate: 200 ml/hr; Infused ko1 Over: 30 mins; Site: right antecubital; 07:41 Drug: Potassium PO Effervescent Tablet 50 mEq Route: PO; ko1 09:21 Drug: Ciprofloxacin IVPB 400 mg Volume: 200 ml; Route: IVPB; Infused Over: 60 mins; ko1 Site: right antecubital; 09:45 Drug: NS 0.9% with KCl IV 20 mEq/L 1000 ml Route: IV; Rate: 125 ml/hr; Site: right ko1 antecubital; Intake: 04:16 IV: 1000ml; Total: 1000ml. kl Outcome: 06:03 Decision to Hospitalize by Provider. chase 12:22 Patient left the ED. mb9 Signatures: Dispatcher [employer] EDME Roseanne Be RN RN kl Anderson, Corey, MD MD cha Alexander, Jessica ja2 Ayala, Heidy, RN RN ha1 Neema Dixon RN RN joyce1 Shanae Justin RN RN mb9 Corrections: (The following items were deleted from the chart) 03:02 03:01 PMHx: Depression; chase chase 03:02 03:01 PMHx: Asthma; chase chase 03:02 03:01 PSHx: Cholecystectomy; chase chase
--- NOTE | 2022-07-12 06:04 | EDPHYS ---
Physician Documentation [facility] Name: Jovani Isaac Age: 26 yrs Sex: Male : 1995 Arrival Date: 07/12/2022 Time: 02:47 Bed 13 Private MD: ED Physician Dexter Goff HPI: 07/12 03:00 This 26 yrs old Male presents to ER via Unassigned with complaints of Syncope.chase 03:00 The patient has experienced near-syncope, almost passed out, felt dizzy. Onset: The chase symptoms/episode began/occurred just prior to arrival. Duration: This was a single episode, that lasted 2 second(s). Context: the episode(s) was witnessed, by no one, occurred at home. Associated injury: The patient did not suffer any apparent associated injury. Associated signs and symptoms: The patient has no apparent associated signs or symptoms. Current symptoms: Currently, the patient is not experiencing any symptoms. It is unknown whether or not the patient has had similar symptoms in the past. Historical: - Allergies: 03:19 No Known Allergies; kl - Home Meds: 03:19 Prazosin Oral [Active]; estriol (bulk) [Active]; sertraline oral [Active]; kl - PMHx: 03:19 Bipolar disorder; PTSD; kl - PSHx: 03:19 Cholecystectomy; kl - Immunization history:: Adult Immunizations up to date. - Family history:: not pertinent. - Social history:: Smoking status: unknown. ROS: 03:04 Constitutional: Negative for fever, chills, and weight loss, Eyes: Negative for injury, chase pain, redness, and discharge, ENT: Negative for injury, pain, and discharge, Neck: Negative for injury, pain, and swelling, Cardiovascular: Negative for chest pain, palpitations, and edema, Respiratory: Negative for shortness of breath, cough, wheezing, and pleuritic chest pain, Abdomen/GI: Negative for abdominal pain, nausea, vomiting, diarrhea, and constipation, Back: Negative for injury and pain, : Negative for injury, bleeding, discharge, and swelling, MS/Extremity: Negative for injury and deformity, Skin: Negative for injury, rash, and discoloration, Psych: Negative for depression, anxiety, suicide ideation, homicidal ideation, and hallucinations, Allergy/Immunology: Negative for hives, rash, and allergies, Endocrine: Negative for neck swelling, polydipsia, polyuria, polyphagia, and marked weight changes, Hematologic/Lymphatic: Negative for swollen nodes, abnormal bleeding, and unusual bruising. 03:04 Neuro: Positive for syncope. Exam: 03:04 Constitutional: This is a well developed, well nourished patient who is awake, alert, chase and in no acute distress. Head/Face: Normocephalic, atraumatic. Eyes: Pupils equal round and reactive to light, extra-ocular motions intact. Lids and lashes normal. Conjunctiva and sclera are non-icteric and not injected. Cornea within normal limits. Periorbital areas with no swelling, redness, or edema. ENT: Nares patent. No nasal discharge, no septal abnormalities noted. Tympanic membranes are normal and external auditory canals are clear. Oropharynx with no redness, swelling, or masses, exudates, or evidence of obstruction, uvula midline. Mucous membranes moist. Neck: Trachea midline, no thyromegaly or masses palpated, and no cervical lymphadenopathy. Supple, full range of motion without nuchal rigidity, or vertebral point tenderness. No Meningismus. Chest/axilla: Normal chest wall appearance and motion. Nontender with no deformity. No lesions are appreciated. Cardiovascular: Regular rate and rhythm with a normal S1 and S2. No gallops, murmurs, or rubs. Normal PMI, no JVD. No pulse deficits. Respiratory: Lungs have equal breath sounds bilaterally, clear to auscultation and percussion. No rales, rhonchi or wheezes noted. No increased work of breathing, no retractions or nasal flaring. Abdomen/GI: Soft, non-tender, with normal bowel sounds. No distension or tympany. No guarding or rebound. No evidence of tenderness throughout. Back: No spinal tenderness. No costovertebral tenderness. Full range of motion. Male : Normal genitalia with no discharge or lesions. Skin: Warm, dry with normal turgor. Normal color with no rashes, no lesions, and no evidence of cellulitis. MS/ Extremity: Pulses equal, no cyanosis. Neurovascular intact. Full, normal range of motion. Neuro: Awake and alert, GCS 15, oriented to person, place, time, and situation. Cranial nerves II-XII grossly intact. Motor strength 5/5 in all extremities. Sensory grossly intact. Cerebellar exam normal. Normal gait. Psych: Awake, alert, with orientation to person, place and time. Behavior, mood, and affect are within normal limits. 03:45 Musculoskeletal/extremity: DVT Exam: No signs of deep vein thrombosis. no pain, no chase swelling, no tenderness, negative Homans' sign noted on exam, no appreciated bluish discoloration, no erythema, no increased warmth. Vital Signs: 03:00 BP 60 / 37; kl 03:18 BP 83 / 58; Pulse 78; Resp 20; Temp 98.3(TE); Pulse Ox 99% on R/A; kl 04:15 BP 114 / 76; Pulse 78; Resp 18; Pulse Ox 99% on R/A; kl MDM: 02:59 Patient medically screened. [facility] 03:05 Differential Diagnosis: cardiac arrhythmia, cerebrovascular accident, drug effect, chase emotional response, GI bleed, idiopathic syncope, vasovagal episode. Data reviewed: vital signs, nurses notes. Consideration of Admission/Observation Escalation of care including admission/observation considered. I considered the following discharge prescriptions or medication management in the emergency department Medications were administered in the Emergency Department. See MAR. Test considered but Not performed: MRI: no mri brain. Historians other than the Patient: EMS: syncope at home. Care significantly affected by the following chronic conditions: depression. Counseling: I had a detailed discussion with the patient and/or guardian regarding: the historical points, exam findings, and any diagnostic results supporting the discharge/admit diagnosis, lab results, radiology results. 07/12 03:00 Order name: CBC with Diff; Complete Time: 05:02 [facility] 07/12 03:00 Order name: Comprehensive Metabolic Panel; Complete Time: 05:02 [facility] 07/12 03:03 Order name: Troponin HS 07/12 03:03 Order name: Lipase 07/12 03:03 Order name: Urinalysis W/Microscopic 07/12 03:03 Order name: BNP 07/12 03:03 Order name: Magnesium 07/12 03:08 Order name: Fecal Leukocyte Stain 07/12 03:08 Order name: Stool Culture 07/12 03:09 Order name: Type And Screen 07/12 04:55 Order name: CREATININE WHOLE BLOOD; Complete Time: 05:02 [facility] 07/12 07:02 Order name: Urinalysis w/ reflexes [facility] 07/12 07:04 Order name: Lactate w/ 2H reflex if indic. [facility] 07/12 07:04 Order name: Blood Culture [facility] 07/12 07:04 Order name: Blood Culture [facility] 07/12 07:05 Order name: CBC with Automated Diff [facility] 07/12 07:05 Order name: CBC with Automated Diff [facility] 07/12 07:05 Order name: Comprehensive Metabolic Panel [facility] 07/12 07:05 Order name: Comprehensive Metabolic Panel [facility] 07/12 07:05 Order name: Magnesium [facility] 07/12 07:05 Order name: Magnesium [facility] 07/12 07:05 Order name: Phosphorus [facility] 07/12 07:05 Order name: Phosphorus [facility] 07/12 10:26 Order name: ABO/RH no charge [facility] 07/12 03:03 Order name: CT Head Brain wo Cont [facility] 07/12 03:08 Order name: CT Abd/Pelvis - IV Contrast Only [facility] 07/12 03:53 Order name: Chest Single View XRAY [facility] 07/12 03:00 Order name: EKG; Complete Time: 03:01 [facility] 07/12 07:02 Order name: Clear Liquid; Complete Time: 07:41 [facility] 07/12 03:00 Order name: EKG - Nurse/Tech; Complete Time: 09:21 [facility] 07/12 05:04 Order name: PO challenge: gatorade; Complete Time: 07:45 [facility] Administered Medications: 03:22 Drug: NS 0.9% IV 1000 ml Route: IV; Rate: 1 bolus; Site: right antecubital; kl 04:16 Follow up: IV Status: Completed infusion; IV Intake: 1000ml kl 04:14 Drug: Famotidine IVP 20 mg Route: IVP; Site: right antecubital; kl 04:16 Follow up: Response: No adverse reaction kl 04:16 Drug: NS 0.9% IV 1000 ml Route: IV; Rate: 1 bolus; Site: right antecubital; kl 07:40 Drug: metroNIDAZOLE IVPB 500 mg Volume: 100 ml; Route: IVPB; Rate: 200 ml/hr; Infused ko1 Over: 30 mins; Site: right antecubital; 07:41 Drug: Potassium PO Effervescent Tablet 50 mEq Route: PO; ko1 09:21 Drug: Ciprofloxacin IVPB 400 mg Volume: 200 ml; Route: IVPB; Infused Over: 60 mins; ko1 Site: right antecubital; 09:45 Drug: NS 0.9% with KCl IV 20 mEq/L 1000 ml Route: IV; Rate: 125 ml/hr; Site: right ko1 antecubital; Disposition Summary: 07/12/22 06:03 Hospitalization Ordered Hospitalization Status: Observation chase Provider: Luis Catherine cha Location: Telemetry/MedSurg (observation) chase Condition: Fair chase Problem: new chase Symptoms: have improved chase Bed/Room Type: Standard [facility] Room Assignment: 428(07/12/22 10:47) [email or web address] Diagnosis - Syncope Near chase - Left sided colitis chase - Hypokalemia chase - Diarrhea, unspecified chase - Hypotension, unspecified chase Discharge Instructions: - Discharge Summary Sheet chase - Food Choices to Help Relieve Diarrhea, Adult chase - Potassium Content of Foods chase - Hypotension chase - Near-Syncope chase - Weakness chase - Near-Syncope, Xhrw-cj-[id number] chase - Hypotension, Fsjj-[id number]-Hqcg chase - Weakness, Hugd-ct-Tabh chase - Hypokalemia [facility] Forms: - Medication Reconciliation Form chase - SBAR form [facility] Prescriptions: - Zofran 4 mg Oral Tablet - take 1 tablet by ORAL route every 12 hours As needed; 20 tablet; Refills: 0, [facility] Product Selection Permitted - Potassium Chloride 20 meq Oral Packet - take 1 packet by ORAL route every 12 hours 1 packet in 6 (six) ounces of water chase or juice; Take after meal; 20 packet; Refills: 0, Product Selection Permitted - Lomotil 2.5-0.025 mg Oral Tablet - take 1 tablet by ORAL route every 6 hours As needed; 20 tablet; Refills: 0, chase Product Selection Permitted Signatures: Dispatcher [employer] Roseanne Lr RN RN kl Anderson, Corey, MD MD cha Jackson, Kandis kj1 Neema Dixon RN RN ko1 Corrections: (The following items were deleted from the chart) 03:02 03:01 PMHx: Depression; chase chase 03:02 03:01 PMHx: Asthma; chase chase 03:02 03:01 PSHx: Cholecystectomy; chase chase 03:22 03:00 Orthostatics ordered. [facility] 10:47 06:03 chase kj1
--- NOTE | 2022-07-12 07:04 | P.HP ---
Certification for Inpatient Patient admitted to: Observation With expected LOS: <2 Midnights Patient will require the following post-hospital care: None Practitioner: I am a practitioner with admitting privileges, knowledge of patient current condition, hospital course, and medical plan of care. Services: Services provided to patient in accordance with Admission requirements found in Title 42 Section 412.3 of the Code of Federal Regulations Patient History Date of Service: 07/12/22 Reason for admission: Hypotension History of Present Illness: Jovani (preferred name: Gema Isaac is a 26 year old transgender female who has a past medical history of bipolar disorder and post-traumatic stress disorder who presents to the [facility] Emergency Department for dizziness/lightheadedness. She reports that, yesterday evening around 22:00-23:00, she began experiencing abdominal pain, nausea/vomiting, and diarrhea. She reports that these symptoms occurred without any obvious inciting or alleviating factors. She was able to tolerate the symptoms and went to sleep. However, at 02:00 AM this morning, she reports waking up and vomiting again. She became lightheaded and dizzy, resulting in her falling down in the bathroom. She denies any loss of consciousness. Her mother found her in the bathroom and she was brought in to the Emergency Department for further evaluation. On review of systems, she denies any fevers, chills, headaches, dizziness, syncope, chest pain, palpitations, shortness of breath, wheezing, cough, hematemesis, hematochezia, melena, dysuria, hematuria, myalgia, or any other symptoms. Upon presentation, her vital signs were notable for blood pressure of 67/30. Her laboratory studies were notable for a potassium of 3.0. EKG revealed no STEMI criteria. Chest x-ray revealed, "no acute cardiopulmonary findings." CT head revealed, "1. No acute intracranial or extra-axial abnormality. 2. Fluid in l eft mastoid air cells which may reflect sequela from mastoiditis." CT abdomen/pelvis revealed, "1. Mildly thickened segments of small bowel in the left side of the abdomen, nonspecific and which may represent enteritis. No bowel obstruction. 2. Splenomegaly." In the Emergency Department, she was given famotidine and 2 L Normal Saline. She was admitted to the General Internal Medicine service for further evaluation. Allergies No Known Allergies Allergy (Unverified 07/12/22 07:09) Home medications list reviewed: Yes Home Medications: RX: Estrogens, Conjugated [Premarin] 07/12/22 RX: Prazosin HCl PO DAILY 07/12/22 RX: Sertraline HCl 50 mg PO DAILY 07/12/22 - Past Medical/Surgical History -: Bipolar Disorder -: PTSD -: Cholecystectomy - Family History Family History: Reviewed- Non-Contributory - Social History Smoking Status: Never smoker Alcohol use: No CD- Drugs: No Review of Systems General: Unremarkable Eyes: Unremarkable ENT: Unremarkable Respiratory: Unremarkable Cardiovascular: Unremarkable Gastrointestinal: Nausea, Vomiting, Abdominal Pain, Diarrhea Genitourinary: Unremarkable Musculoskeletal: Unremarkable Integumentary: Unremarkable Neurological: Unremarkable Lymphatics: Unremarkable Physical Examination - Vital Signs Temperature: 98.3 F Blood Pressure: 114/76 Pulse: 78 Respirations: 18 Pulse Ox (%): 99 - Physical Exam General: Alert, In no apparent distress, Oriented x3 HEENT: Atraumatic, Mucous membr. moist/pink, Sclerae nonicteric Neck: JVD not distended Respiratory: Clear to auscultation bilaterally, Normal air movement Cardiovascular: No edema, Regular rate/rhythm, Normal S1 S2, No gallops, No rubs, No murmurs Gastrointestinal: Normal bowel sounds, Soft and benign, Non-distended, No tenderness, No rebound, No guarding Musculoskeletal: No clubbing Integumentary: No rashes Neurological: Normal speech, Normal affect - Studies Laboratory Data (last 24 hrs) 07/12/22 03:10: Sodium 135 L, Potassium 3.0 L, BUN 10, Creatinine 1.25, Glucose 138 H, Total Bilirubin 0.4, AST 18, ALT 34, Alkaline Phosphatase 81 07/12/22 03:10: WBC 11.10 H, Hgb 14.3, Hct 41.8, Plt Count 249 Assessment and Plan - Plan # Hypotension secondary to Dehydration from Gastroenteritis # Lactic Acidosis due to above # Hypokalemia due to Diarrhea/Vomiting CT abdomen/pelvis revealed, "1. Mildly thickened segments of small bowel in the left side of the abdomen, nonspecific and which may represent enteritis. No bowel obstruction. 2. Splenomegaly." - Gastroenterology consulted - recommendations appreciated - S/P 2 L NS with improvement in blood pressures - Continue Lactated Ringers' @ 100 mL/hr - Started piperacillin-tazobactam - Trend lactate - Replace electrolytes as needed # Bipolar Disorder # Post-Traumatic Stress Disorder - Continue home sertraline - Resume home prazosin when dose is verified # Fluid in Left Mastoid Air Cells - Noted on CT - Asymptomatic and exam reassuring - Discussed with ENT, who reviewed images and recommended outpatient follow-up Jeremiah Wright M.D. - Advance Directives Does patient have a Living Will: No Does patient have a Durable POA for Healthcare: No
[2022-07-12] MEDS: PIPER TAZO 3.375 GM in NA CHLORIDE 0.9% 100 ML IV SCH ×3 (07:30→15:55)
[2022-07-12] MEDS ORDERED: POTASSIUM 25 MEQ EFFERV TAB ONE (07:31)
[2022-07-12] MEDS ORDERED: NA CHLORIDE 0.9% 1,000 ML ONE (07:31)
[2022-07-12] MEDS ORDERED: METRONIDAZOLE 500mg IVPB 500 MG/100 ML BAG IV ONE (07:32)
[2022-07-12] MEDS ORDERED: CIPROFLOXACIN 400mg IV 400 MG/200 ML BAG IV ONE (07:32)
[2022-07-12] MEDS ORDERED: NS KCL 20MEQ 0 ML IV ONE (07:32)
[2022-07-12] MEDS: Ringers Lactate 1,000 ML IV SCH ×3 (08:00→21:57)
[2022-07-12 09:03] LABS: Magnesium 2.2 mg/dL (1.6-2.4)
[2022-07-12 09:08] LABS: Urine Bacteria None Seen /HPF (<20); Urine Bilirubin NEGATIVE (Negative); Urine Blood Negative (Negative); Urine Clarity Clear (Clear); Urine Color Light-Yellow (Yellow); Urine Glucose NEGATIVE (Negative); Urine Mucus Slight /HPF (None Seen); Urine Protein NEGATIVE (Negative); Urine RBC <5 /HPF (None Seen); Urine Urobilinogen Normal (Normal); Urine pH 5.5 (5.0-7.0)
[2022-07-12 09:19] LABS: Specific Gravity 1.025 (1.005-1.030)
[2022-07-12] MEDS ORDERED: PIPERACIL/TAZO 3.375 GM VIAL IV ONE (09:29)
[2022-07-12] MEDS ORDERED: Ringers Lactate 1,000 ML IV ONE (09:37)
[2022-07-12] MEDS ORDERED: NA CHLORIDE 0.9% 100 ML ONE (09:42)
[2022-07-12 13:06] VITALS: BMI 31.2
[2022-07-12] MEDS ORDERED: POTASSIUM CL SA 10 MEQ TAB PO ONE (13:20)
[2022-07-12 15:23] LABS: Specific Gravity 1.028 (1.005-1.030); Urine Bacteria None Seen /HPF (<20); Urine Bilirubin NEGATIVE (Negative); Urine Blood Negative (Negative); Urine Clarity Clear (Clear); Urine Color Light-Yellow (Yellow); Urine Glucose NEGATIVE (Negative); Urine Protein NEGATIVE (Negative); Urine RBC <5 /HPF (None Seen); Urine Urobilinogen Normal (Normal)
--- NOTE | 2022-07-12 17:57 | RAD REPORT ---
EXAM DESCRIPTION: Head Brain Wo Cont CLINICAL HISTORY: DIZZINESS TECHNIQUE: Contiguous axial CT images obtained through the brain without IV contrast. Coronal and sa gittal reformatted images were provided. This exam was performed according to our departmental dose-optimization program, which includes autom ated exposure control, adjustment of the mA and/or kV according to patient size and/or use of iterati ve reconstruction technique. COMPARISON: None available for comparison FINDINGS: Brain: No significant white matter changes. No focal mass effect. Bboo-white matter differ entiation is within normal limits. No hemorrhage. Ventricles: No ventriculomegaly or midline shift. Extra-axial spaces: No extra-axial collection or hemorrhage. Paranasal sinuses and mastoid air cells: Fluid in left mastoid air cells which may reflect sequela fr om mastoiditis. Bones: Unremarkable Soft tissues: Unremarkable IMPRESSION: 1. No acute intracranial or extra-axial abnormality. 2. Fluid in left mastoid air cells which may reflect sequela from mastoiditis. Electronically signed by: Khurram Joshua MD 07/12/2022 4:27 AM CDT Due to temporary technical issues with the PACS/Fluency reporting system, reports are being signed by the in house radiologists without review as a courtesy to insure prompt reporting. The interpreting radiologist is fully responsible for the content of the report.
[2022-07-13] MEDS: PIPER TAZO 3.375 GM in NA CHLORIDE 0.9% 100 ML IV SCH ×3 (00:56→08:24)
[2022-07-13 01:36] VITALS: O2SAT 95
[2022-07-13] MEDS: Ringers Lactate 1,000 ML IV SCH ×2 (04:00→07:54)
[2022-07-13 04:08] LABS: Absolute Lymphocytes (CBC) 2.1 K/uL (0.7-4.9); Hematocrit 39.3 % (39.6-49.0); Lymphocytes % 24.8 % (15.3-44.8); MCV 79.3 fL (80-100); MPV 8.9 fL (7.6-11.3); RBC Red Blood Cell Count 4.96 M/uL (4.33-5.43)
[2022-07-13 04:30] LABS: Albumin 3.3 g/dL (3.4-5.0); Bilirubin Total 0.4 mg/dL (0.2-1.0); Magnesium 2.1 mg/dL (1.6-2.4); Phosphorus 2.5 mg/dL (2.5-4.9); Protein, Total 6.3 g/dL (6.4-8.2)
[2022-07-13 05:18] VITALS: BP 120/64; TEMP 97.1
[2022-07-13] MEDS: ENOXAPARIN 40 MG/0.4 ML SQ SCH ×2 (07:55→08:24)
--- NOTE | 2022-07-13 08:16 | P.DS ---
Admission Date: 07/12/22 Discharge Date: 07/13/22 Disposition: ROUTINE DISCHARGE Discharge Condition: GOOD Reason for Admission: Hypotension Consultations: 1. Gastroenterology Hospital Course: DIAGNOSES: # Hypotension secondary to Dehydration from Gastroenteritis # Lactic Acidosis due to above # Hypokalemia due to Diarrhea/Vomiting # Bipolar Disorder # Post-Traumatic Stress Disorder # Fluid in Left Mastoid Air Cells HOSPITAL COURSE: Jovani (preferred name: Gema Isaac is a 26 year old transgender female who has a past medical history of bipolar disorder and post-traumatic stress disorder who was admitted to the [facility] on 07/12/2022 for dizziness/lightheadedness. She was admitted to the Medicine service. Upon further evaluation, her vital signs were notable for blood pressure of 67/30. Her laboratory studies were notable for a potassium of 3.0. EKG revealed no STEMI criteria. Chest x-ray revealed, "no acute cardiopulmonary findings." CT head revealed, "1. No acute intracranial or extra-axial abnormality. 2. Fluid in left mastoid air cells which may reflect sequela from mastoiditis." CT abdomen/pelvis revealed, "1. Mildly thickened segments of small bowel in the left side of the abdomen, nonspecific and which may represent enteritis. No bowel obstruction. 2. Splenomegaly." She was treated with IV fluids and antibiotics, with significant improvement in her symptoms. This morning she felt well and stated that she felt ready to be discharged home. Incidentally, she was found to have fluid in her left mastoid air cells, possibly representing sequela from mastoiditis. I reviewed this with ENT, who recommended outpatient follow-up. She was advised to follow-up with ENT. She verbalized understanding and agreed to follow-up. On 07/13/2022, she was seen on morning rounds and deemed medically stable for discharge. She was discharged with instructions to schedule follow-up appointments with her PCP, with Gastroenterology (Dr. Anaya), and with Otorhinolaryngology (Dr. Ruiz). She was provided a prescription for amoxicillin- clavulanate. She was given the opportunity to ask questions and reported no further questions. Furthermore, all questions were answered to the best of my ability. A copy of this discharge summary will be sent to the above providers to facilitate continuity of care. Today, I personally spent 25 minutes on her case, of which greater than 50% of the time was spent in patient education, counseling, and coordination of care as described above. - Physical Exam General: Alert, In no apparent distress, Oriented x3 HEENT: Atraumatic, Mucous membr. moist/pink, Sclerae nonicteric Neck: JVD not distended Respiratory: Clear to auscultation bilaterally, Normal air movement Cardiovascular: No edema, Regular rate/rhythm, No murmurs Gastrointestinal: Normal bowel sounds, Soft, Non-distended, No tenderness, No rebound, No guarding Musculoskeletal: No clubbing Integumentary: No rashes Neurological: Normal speech, Normal affect Vital Signs/Physical Exam: Temp Pulse Resp BP Pulse Ox 97.1 F 80 18 120/64 96 07/13/22 04:00 07/13/22 04:00 07/13/22 04:00 07/13/22 04:00 07/13/22 04:00 Laboratory Data at Discharge: WBC 8.50 thou/uL (4.3-10.9) 07/13/22 03:22 Hgb 13.2 g/dL (13.6-17.9) L 07/13/22 03:22 Hct 39.3 % (39.6-49.0) L 07/13/22 03:22 Plt Count 182 thou/uL (152-406) D 07/13/22 03:22 Sodium 138 mEq/L (136-145) 07/13/22 03:22 Potassium 4.0 mEq/L (3.5-5.1) D 07/13/22 03:22 BUN 7 mg/dL (7-18) 07/13/22 03:22 Creatinine 0.89 mg/dL (0.70-1.30) 07/13/22 03:22 Glucose 96 mg/dL (74-106) 07/13/22 03:22 Phosphorus 2.5 mg/dL (2.5-4.9) 07/13/22 03:22 Magnesium 2.1 mg/dL (1.6-2.4) 07/13/22 03:22 Total Bilirubin 0.4 mg/dL (0.2-1.0) 07/13/22 03:22 AST 16 U/L (15-37) 07/13/22 03:22 ALT 26 U/L (16-61) 07/13/22 03:22 Alkaline Phosphatase 67 U/L (45-117) 07/13/22 03:22 Lipase 26 U/L (13-75) 07/12/22 03:10 Home Medications: Estrogens, Conjugated [Premarin] 3 mg PO DAILY 07/12/22 Prazosin HCl 1 tab PO DAILY 07/12/22 Sertraline HCl 50 mg PO DAILY 07/12/22 Amox/Clavulanate [Augmentin 875-125 Tab] 875 mg PO BID 5 Days #10 tab 07/13/22 New Medications: Amox/Clavulanate [Augmentin 875-125 Tab] 875 mg PO BID 5 Days #10 tab Physician Discharge Instructions: 1. Please call and schedule a follow-up appointment with your PCP in 3-5 days 2. Please call and schedule a follow-up appointment with Gastroenterology (Dr. Anaya) in 5-7 days 3. Please call and schedule a follow-up appointment with ENT (Dr. Ruiz) in 5-7 days - It appears you may have had an old infection behind your left ear (called mastoiditis) - please follow-up with ENT for further evaluation Diet: Regular Activity: Ad senia Followup: NONE,NONE [Primary Care Provider] - Vini Anaya MD [ASSOCIATE-ACTIVE - CAN ADMIT] - Fabby Ruiz DO [ACTIVE - CAN ADMIT] - Time spent managing pt's care (in minutes): 25
--- NOTE | 2022-07-13 09:03 | RAD REPORT ---
EXAM DESCRIPTION: Abdomen Pelvis W Contrast CLINICAL HISTORY: Diarrhea;Abd pain TECHNIQUE: Contiguous axial images obtained through the abdomen and pelvis following the uneventful administration of IV contrast. Coronal and sagittal reformatted images were provided. This exam was performed according to our departmental dose-optimization program, which includes autom ated exposure control, adjustment of the mA and/or kV according to patient size and/or use of iterati ve reconstruction technique. COMPARISON: None available for comparison. FINDINGS: Lung bases: Clear Liver: Unremarkable Gallbladder and biliary system: Status post cholecystectomy. Pancreas: Unremarkable Spleen: Splenomegaly, the spleen measures approximately 15.7 cm longitudinally. Adrenals: Unremarkable Kidneys: Normal renal cortical enhancement. No calculi. No hydronephrosis. GI: Mildly thickened segments of small bowel in the left side of the abdomen, nonspecific and which m ay represent enteritis. No bowel obstruction. Appendix: No findings to suggest acute appendicitis. Urinary bladder: Unremarkable Reproductive: Unremarkable as visualized Lymph nodes: No pathologically enlarged lymph nodes. Peritoneum: No focal fluid collection. No free air. Vessels: No abdominal aortic aneurysm. Abdominal wall: Unremarkable Bones: Unremarkable IMPRESSION: 1. Mildly thickened segments of small bowel in the left side of the abdomen, nonspecif ic and which may represent enteritis. No bowel obstruction. 2. Splenomegaly. Electronically signed by: Khurram Joshua MD 07/12/2022 4:34 AM CDT Due to temporary technical issues with the PACS/Fluency reporting system, reports are being signed by the in house radiologists without review as a courtesy to insure prompt reporting. The interpreting radiologist is fully responsible for the content of the report.
--- NOTE | 2022-07-13 09:04 | RAD REPORT ---
EXAM DESCRIPTION: XR CHEST 1 VIEW CLINICAL HISTORY: Male, 26 years old, COUGH TECHNIQUE: 1 view COMPARISON: None. FINDINGS: Support devices: Overlying telemetry leads. Lungs/pleura: No consolidation, pleural effusion, or pneumothorax. Heart and mediastinum: Cardiomediastinal silhouette has normal size and configuration. Other: No acute osseous findings. IMPRESSION: No acute cardiopulmonary findings. Electronically signed by: Magen Be MD 07/12/2022 4:46 AM CDT Due to temporary technical issues with the PACS/Fluency reporting system, reports are being signed by the in house radiologists without review as a courtesy to insure prompt reporting. The interpreting radiologist is fully responsible for the content of the report.
--- NOTE | 2022-07-14 15:26 | EKG ---
Test Date: 2022-07-12 Test Time: 08:29:51 Film Touch Up Inspector: Betty MEASUREMENT RESULTS: Intervals: Rate: 80 ND: 176 QRSD: 78 QT: 380 QTc: 438 [place]: P: 37 ND: 176 QRS: 21 T: 15 INTERPRETIVE STATEMENTS: Normal sinus rhythm Normal ECG Compared to ECG 05/25/2022 02:06:21 Sinus arrhythmia no longer present Myocardial infarct finding no longer present Electronically Signed On 07-14-22 15:25:38 CDT by Garry Werner
== END 2022-07-13 11:47 | disposition home or self-care (01) ==
LOC: ER 02:47 → ERHOLD 06:59 → 4TH 11:39
PROVIDERS: ADMIT Internal Medicine; ATTEND Internal Medicine
DX: I95.9 Hypotension, unspecified (principal); K52.9 Noninfective gastroenteritis and colitis, unspecified; E86.0 Dehydration; E87.20 Acidosis, unspecified; E87.6 Hypokalemia; H74.8X2 Other specified disorders of left middle ear and mastoid; F31.9 Bipolar disorder, unspecified; F43.10 Post-traumatic stress disorder, unspecified
CPT/HCPCS: 93005; 87040 ×2; 85025 ×2; 81001 ×2; 36415 ×2; 86900; 83735 ×2; 86850; 84100; 82565; 86901; 83605 ×2; 84484; 83690; 80053 ×2; 83880; 70450; 74177; 71045; Q9967; J2543 ×4; J0744; J7120 ×3; J7030; G0378; J1650; J3480